=== PATIENT | female | born 1975 | race African-American/Black ===

== ENCOUNTER 2020-04-11 10:58 | Emergency (ER) | payer SELFPAY ==
[~2020-04-11] VITALS: Ht 162.6 cm; Wt 60.0 kg
[2020-04-11 11:00] VITALS: BP 108/82
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
[2020-04-11] MEDS ORDERED: CYCL10TA2 PO (12:57)
== END 2020-04-11 13:04 | disposition home or self-care (01) ==
LOC: ER 10:58
DX: S13.8XXA Sprain of joints and ligaments of other parts of neck, initial encounter (principal); S60.021A Contusion of right index finger without damage to nail, initial encounter; R51 Headache; F41.9 Anxiety disorder, unspecified; E78.00 Pure hypercholesterolemia, unspecified; F17.200 Nicotine dependence, unspecified, uncomplicated; V89.2XXA Person injured in unspecified motor-vehicle accident, traffic, initial encounter; Y93.89 Activity, other specified; Y92.89 Other specified places as the place of occurrence of the external cause; Y99.8 Other external cause status
CPT/HCPCS: 70450; 72125; 73140; 81025; 99285